=== PATIENT | female | born 1965 | race Asian ===

== ENCOUNTER 2022-09-19 16:59 | Emergency (ER) | payer BC, OTHER ==
[~2022-09-19] VITALS: Ht 154.9 cm; Wt 63.5 kg
[2022-09-19 17:05] VITALS: BP_SYST 130
[2022-09-19] MEDS ORDERED: DIPHTH,PERTUSS(ACELL),TET VAC 0.5 ML VIAL (Tdap) I.M. ONE (18:30)
[2022-09-19] MEDS ORDERED: LIDOCAINE 1% 10 MG/ML, 20 ML MDV ID ONE (18:30)
[2022-09-19] MEDS ORDERED: BACITRACIN 1 GM OINT TP ONE (18:30)
--- NOTE | 2022-09-19 18:30 | NUR ---
ER at bedside examining patient.
--- NOTE | 2022-09-19 18:34 | NUR ---
SUTURE REPAIR 3 STITCHES MD JUARES.
--- NOTE | 2022-09-19 18:40 | NUR ---
ER at bedside examining patient.
--- NOTE | 2022-09-19 19:14 | NUR ---
Patient given written and verbal discharge instructions and verbalizes understanding. ER MD discussed with patient the results and treatment provided. Patient in stable condition. ID arm band removed. Patient educated on pain management and to follow up with PMD. Opportunity for questions provided and answered. Medication side effect fact sheet provided.
[2022-09-19 19:15] VITALS: BP_SYST 130
== END 2022-09-19 19:15 | disposition home or self-care (01) ==
LOC: SED 16:59
DX: S61.211A Laceration without foreign body of left index finger without damage to nail, initial encounter (principal); I10 Essential (primary) hypertension; Z79.899 Other long term (current) drug therapy; W26.0XXA Contact with knife, initial encounter; Y93.89 Activity, other specified; Y92.89 Other specified places as the place of occurrence of the external cause; Y99.8 Other external cause status
CPT/HCPCS: 99283; 90715; 90471; 12001; J2001

== ENCOUNTER 2022-09-21 12:36 | Emergency (ER) | payer OTHER ==
[~2022-09-21] VITALS: Ht 154.9 cm; Wt 63.5 kg
[2022-09-21 12:36] VITALS: BP_SYST 143
--- NOTE | 2022-09-21 12:40 | NUR ---
Patient triaged and placed in waiting room. VSS and patient appears in no acute distress at this time. Accompanied by SELF, awaiting available bed, and MD notified of need for MSE.
--- NOTE | 2022-09-21 14:00 | NUR ---
ER DR. STONE EXAMINING PT
--- NOTE | 2022-09-21 14:40 | NUR ---
Patient given written and verbal discharge instructions and verbalizes understanding. ER MD discussed with patient the results and treatment provided. Patient in stable condition. ID arm band removed. NO Rx given. Patient educated on pain management and to follow up with PMD. Pain Scale 0/10. Opportunity for questions provided and answered. Medication side effect fact sheet provided.
[2022-09-21 14:41] VITALS: BP_SYST 131
== END 2022-09-21 14:40 | disposition home or self-care (01) ==
LOC: SED 12:36
DX: S61.215A Laceration without foreign body of left ring finger without damage to nail, initial encounter (principal); Z48.00 Encounter for change or removal of nonsurgical wound dressing; Z79.899 Other long term (current) drug therapy; W26.9XXA Contact with unspecified sharp object(s), initial encounter; Y93.89 Activity, other specified; Y92.89 Other specified places as the place of occurrence of the external cause; Y99.8 Other external cause status
CPT/HCPCS: 99282